=== PATIENT | female | born 1965 | race Caucasian/White ===

== ENCOUNTER → 2017-10-01 | Day surgery (SDC) | payer OTHER ==
[2017-09-30 17:14] VITALS: Ht 157.5 cm; Wt 50.0 kg
[~2017-10-01] VITALS: Ht 157.5 cm; Wt 50.0 kg
[~2017-10-01] MED LIST: ALPR-411 PO; ATROPINE SULFATE 0.1 MG/ML 5ML SYR IV PRN; DIPH1TAB87 PO; EpHEDrine SULFATE INJ 50 MG/ML AMP IV PRN; FLUO40CA8 PO; LIDOCAINE HCL 2% 2 ML VIAL (20MG/ML) ONE; MIDAZOLAM HCL 1 MG/ML 2ML VIAL ONE; MTR600X PO; NAPR1TAB9 PO; OXYC-57 PO; PROPOFOL IV EMULSION 10 MG/ML 20 ML VIAL ONE; VENL150C PO
--- NOTE | 2017-10-01 12:36 | Endo History and Physical ---
History & Physical Date of Service: October 01, 2017. Chief Complaint: Rectal bleeding and abdominal pain Referring Physician: DR. STARK History of Present Illness 52 yo CF who presents for colonoscopy secondary to abdominal pain and rectal bleeding. Past Medical History Anxiety, Reflux, Depression Past Surgical History Hx Cardiac Surgery: No Hx Internal Defibrillator: No Hx Pacemaker: No Hx Abdominal Surgery: Yes (; D&C, HYSTER) Hx of Implantable Prosthesis: No Hx Post-Op Nausea and Vomiting: No Hx Cancer Surgery: No Hx Thoracic Surgery: No Hx Orthopedic: No Hx Urinary Tract Surgery: No Family History IBD Social History Smoking Status: Heavy Tobacco Smoker Hx Substance Use: Yes (PERCOCET PRN) Hx Alcohol Use: Yes (OCCASIONALLY) Allergies Coded Allergies: Codeine (Verified Allergy, Mild, GI SYMPTOMS, 09/30/17) Current Medications Reported Home Medications Medications Dose Route/Sig Max Daily Dose Days Date Category Benadryl Allergy (Diphenhydramine Hcl) 25 Mg Tab 1 Tab PO DAILY 09/30/17 Reported Aleve (Naproxen) 220 Mg Tab 1-2 Tab PO DAILY 09/30/17 Reported Xanax (Alprazolam) 0.5 Mg Tab 0.5 Mg PO TID 09/30/17 Reported Effexor Xr (Venlafaxine Hcl) 150 Mg Cap 1 Cap PO DAILY 30 09/30/17 Reported Prozac (Fluoxetine HCl) 40 Mg Cap 40 Mg PO BID 09/30/17 Reported Percocet 5MG/325MG (Oxycodone/Acetaminophen) 1 Tab Tab 1-2 Tab PO Q4H PRN 12/20/13 Rx Ibuprofen 600 Mg Tab 600 Mg PO Q6H PRN 12/20/13 Rx Vital Signs Weight (Kilograms): 50 Height (Feet): 5 Height (Inches): 2 Date Time Temp Pulse Resp B/P (MAP) Pulse Ox O2 Delivery O2 Flow Rate FiO2 10/01/17 11:20 36.9 82 16 128/84 (99) 98 Room Air Physical Exam General Appearance: WD/WN, no apparent distress Respiratory/Chest: Auscultation: breath sounds normal Cardiovascular: Heart Auscultation: RRR Abdomen: Bowel Sounds: normal Inspection & Palpation: soft, non-distended, no tenderness, guarding & rebound Assessment and Plan Assessment: 52 yo CF who presents for colonoscopy secondary to abdominal pain and rectal bleeding. Plan: Proceed with colonoscopy.
--- NOTE | 2017-10-01 13:06 | GI REPORT ---
Patient Name: Nedra Mcdonald Procedure Date: 10/01/2017 12:32 PM Date of : 1965 Admit Type: Outpatient Age: 52 Gender: Female Attending MD: Jared Yeager DO Procedure: Colonoscopy Providers: Jared Yeager DO Referring MD: Jared Yeager DO Indications: Generalized abdominal pain, Rectal bleeding Medicines: Monitored Anesthesia Care Complications: No immediate complications. Estimated Blood Loss: Estimated blood loss: none. Procedure: Pre-Anesthesia Assessment: - Prior to the procedure, a History and Physical was performed, and patient medications and allergies were reviewed. The patient's tolerance of previous anesthesia was also reviewed. The risks and benefits of the procedure and the sedation options and risks were discussed with the patient. All questions were answered, and informed consent was obtained. Prior Anticoagulants: The patient has taken no previous anticoagulant or antiplatelet agents. ASA Grade Assessment: III - A patient with severe systemic disease. After reviewing the risks and benefits, the patient was deemed in satisfactory condition to undergo the procedure. After I obtained informed consent, the scope was passed under direct vision. Throughout the procedure, the patient's blood pressure, pulse, and oxygen saturations were monitored continuously. The Scope was introduced through the anus and advanced to the terminal ileum. The colonoscopy was performed without difficulty. The patient tolerated the procedure well. The quality of the bowel preparation was good. The terminal ileum, ileocecal valve, appendiceal orifice, and rectum were photographed. Findings: The perianal and digital rectal examinations were normal. Non-bleeding internal hemorrhoids were found during retroflexion. The hemorrhoids were small. Several random biopsies were obtained with cold forceps for histology in the entire colon. Impression: - Non-bleeding internal hemorrhoids. - Several random biopsies were obtained in the entire colon. Recommendation: - Resume previous diet. - Continue present medications. - Await pathology results. - Schedule defecography study and Ano-rectal manometry - Return to GI office as previously scheduled. Jared Yeager DO 10/01/2017 1:05:36 PM This report has been signed electronically. Note Initiated On: 10/01/2017 12:32 PM Number of Addenda: 0 I attest to the content of the Intraoperative Record and orders documented therein, exceptions below {[id number]}
--- NOTE | 2017-10-01 13:08 | Discharge Instructions ---
Endoscopy Patient Instructions Date / Procedure(s) Performed October 01, 2017. Colonoscopy Allergy Information Coded Allergies: Codeine (Verified Allergy, Mild, GI SYMPTOMS, 09/30/17) Discharge Date / Findings October 01, 2017. Random colon biopsies Internal hemorrhoids Medication Instructions OK to resume all medications today as prescribed Reported Home Medications Medications Dose Route/Sig Max Daily Dose Days Date Category Benadryl Allergy (Diphenhydramine Hcl) 25 Mg Tab 1 Tab PO DAILY 09/30/17 Reported Aleve (Naproxen) 220 Mg Tab 1-2 Tab PO DAILY 09/30/17 Reported Xanax (Alprazolam) 0.5 Mg Tab 0.5 Mg PO TID 09/30/17 Reported Effexor Xr (Venlafaxine Hcl) 150 Mg Cap 1 Cap PO DAILY 30 09/30/17 Reported Prozac (Fluoxetine HCl) 40 Mg Cap 40 Mg PO BID 09/30/17 Reported Percocet 5MG/325MG (Oxycodone/Acetaminophen) 1 Tab Tab 1-2 Tab PO Q4H PRN 12/20/13 Rx Ibuprofen 600 Mg Tab 600 Mg PO Q6H PRN 12/20/13 Rx Provider Instructions Activity Restrictions - No exercising or heavy lifting for 24 hours. - Do not drink alcohol the day of the procedure. - Do not drive a car or operate machinery until the day after the procedure. - Do not make any important decisions or sign important papers in 24 hours after the procedure. Following Day: - Return to full activity which may include returning to work/school. Diet Start your diet with liquids and light foods (jello, soup, juice, toast). Then eat your usual diet if not nauseated. Treatment For Common After Affects For mild abdominal pain, bloating, or excessive gas: - Rest - Eat lightly - Lie on right side Follow-Up Information Follow-up with DR. STARK as scheduled Anesthesia Information What You Should Know You have had a procedure that required some medicine to reduce anxiety and discomfort. This treatment is called moderate sedation. After receiving the treatment, you may be sleepy, but you will be able to breathe on your own. The effects of the treatment may last for several hours. Follow these instructions along with Activity/Diet recommendations noted above: * Do NOT do anything where dizziness or clumsiness would be dangerous. * Rest quietly at home today, then you can be up and about tomorrow. * Have a responsible person stay with you the rest of today. * You may have had an I.V. today. If so, you may take the dressing off later today. Recommendations Call your doctor if: * Trouble breathing * Continuous vomiting for more than 24 hours * Temperature above 101 degrees * Severe abdominal pain or bloating * Pain not relieved by pain medicine ordered * There is increased drainage or redness from any incision * A large amount of rectal bleeding greater than 2-3 tablespoons. (If you had a polyp/s removed or have hemorrhoids, a small amount of blood - from the rectum is to be expected.) * You have any unanswered questions or concerns. IN THE EVENT OF A SERIOUS EMERGENCY, GO TO THE NEAREST EMERGENCY ROOM Your discharge instructions were prepared by provider Jared Yeager. Patient Instructions Signature Page Nedra Mcdonald Patient (or Guardian) Signature/Date: I have read and understand the instructions given to me by my caregivers. Caregiver/RN/Doctor Signature/Date: The above-named patient and/or guardian has received patient instructions on this date. + Original Patient Signature Page (only) stays with chart. Please make copy for patient.
--- NOTE | 2017-10-01 13:24 | Anesthesiology Progress Note ---
Anesthesia Post Op Note Date & Time October 01, 2017 at 13:24 Vital Signs Pain Intensity: 0 Vital Signs Past 12 Hours Date Time Temp Pulse Resp B/P (MAP) Pulse Ox O2 Delivery O2 Flow Rate FiO2 10/01/17 11:20 36.9 82 16 128/84 (99) 98 Room Air Notes Mental Status: alert / awake / arousable, participated in evaluation Pt Amnestic to Procedure: Yes Nausea / Vomiting: adequately controlled Pain: adequately controlled Airway Patency, RR, SpO2: stable & adequate BP & HR: stable & adequate Hydration State: stable & adequate Anesthetic Complications: no major complications apparent
[2017-10-01 13:35] VITALS: BP 119/88; PULSE 76; O2SAT 98
== END | disposition home or self-care (01) ==
LOC: C.GI 10:40
PROVIDERS: ATTEND Internal Medicine
DX: Z12.11 Encounter for screening for malignant neoplasm of colon (principal); K62.5 Hemorrhage of anus and rectum; R10.84 Generalized abdominal pain; K64.8 Other hemorrhoids; K21.9 Gastro-esophageal reflux disease without esophagitis; F32.9 Major depressive disorder, single episode, unspecified; F17.200 Nicotine dependence, unspecified, uncomplicated; Z88.5 Allergy status to narcotic agent; Z90.710 Acquired absence of both cervix and uterus